=== PATIENT | female | born 1990 | race African-American/Black ===

== ENCOUNTER 2018-10-08 03:36 | Inpatient (IN) | payer SELFPAY ==
[2018-10-08] MEDS ORDERED: MEPERIDINE HCL 25 MG/0.5 ML IV PRN (04:10)
[2018-10-08] MEDS ORDERED: METHYLERGONOVINE 0.2MG/ML AMP IM PRN (04:10)
[2018-10-08] MEDS ORDERED: MIDAZOLAM HCL 2 MG/2 ML INJ IV PRN (04:10)
[2018-10-08] MEDS ORDERED: Ringers Lactate 1,000 ML IV PRN (04:10)
[2018-10-08] MEDS ORDERED: METHYLERGONOVINE 0.2MG/ML AMP IM ONE (04:36)
[2018-10-08] MEDS ORDERED: OXYTOCIN/LR 20 UNIT/1,000 ML BAG IV ONE (04:37)
[2018-10-08 04:38] LABS: RPR Titer ND
[2018-10-08 04:53] LABS: Barbiturates NEGATIVE (NEGATIVE); Benzodiazepines NEGATIVE (NEGATIVE); Cocaine NEGATIVE (NEGATIVE); METHAMPHETAM NEGATIVE (NEGATIVE); Methadone NEGATIVE (NEGATIVE); Opiates NEGATIVE (NEGATIVE); Phencyclidine NEGATIVE (NEGATIVE); THC Cannibis NEGATIVE (NEGATIVE)
[2018-10-08 04:56] LABS: Absolute Lymphocytes (CBC) 2.2 K/uL (0.7-4.9); Absolute Monocytes 0.8 K/uL (0.1-1.3); Absolute Neutrophil 6.4 K/uL (1.8-8.0); Basophils % 0.5 % (0-1.3); Hematocrit 38.5 % (36.0-45.0); Lymphocytes % 22.8 % (15.3-44.8); MPV 10.1 fL (7.6-11.3); Monocytes % 7.9 % (3.3-12.3); RBC Red Blood Cell Count 4.64 M/uL (3.86-4.86)
[2018-10-08] MEDS ORDERED: Ringers Lactate 1,000 ML IV SCH (05:00)
[2018-10-08 05:01] VITALS: BMI 32.1
[2018-10-08 05:05] LABS: Urine Appearance CLEAR; Urine Bilirubin NEGATIVE (NEG); Urine Blood NEGATIVE (NEG); Urine Color YELLOW; Urine Glucose NEGATIVE (NEG); Urine Protein NEGATIVE (NEG); Urine Urobilinogen 0.2 mg/dL (0.2-1.0)
[2018-10-08 05:07] LABS: Urine Microscopic Reflex ORDER UMIC
--- NOTE | 2018-10-08 05:33 | PN ---
Ultrasound confirmed demise and collapsing of the cranial bones. There is also disorganization of the internal structures indicating this has probably occurred days before she has come in. Even though she says she was feeling movements, that is unlikely. Drug screen is negative. The patient h as not been seen 1 time by anybody even in the emergency room. She has no significant disease histor y, so the exact cause of stillborn, of course, is uncertain. The patient and significant other couns dillan. ROXY/JAN Voice ID: [id number] Report ID: [id number]
[2018-10-08 05:35] LABS: Urine Bacteria 20-50 /HPF (<20); Urine Culture Reflex Order REFLEXED; Urine RBC <5 /HPF (NONE SEEN)
--- NOTE | 2018-10-08 05:38 | PREOPHP ---
Date of Admission: 10/08/2018 A 27-year-old, 6, para 5, 39 weeks and 4-5 days by best estimates. History of no ca re with at least 2 previous pregnancies and maybe all of them. No care with this either. Comes in, in advanced labor, 9 cm or more. 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 There i s a very thick meconium and it is hard to tell, but I think that there is a vertex presenting, but th e bones are not together. We have a collapsed vertex, it appears. Ultrasound is kira ordered at this point. Family History: Noncontributory. Past Medical History: Other than what is stated is not contributory. We will run a drug screen on the patient's. Physical Examination: Vital Signs: Normal vital signs. General: She is alert on her cell phone. Heart: Clear. Lungs: Clear. Breasts: Not examined. Abdomen: Term size. Extremities: Clear. Pelvic: Exam shows that she is 9-10 cm. Ultrasound demonstrates what we think radha se. We will start Pitocin and finish the delivery at this point. ROXY/JAN Voice ID: [id number]
[2018-10-08] MEDS ORDERED: Oxycodone HCl/Acetaminophen 1 TAB TAB PO PRN ×2 (07:20)
[2018-10-08] MEDS ORDERED: BISACODYL 10 MG RECTAL SUPP RECT PRN (07:20)
[2018-10-08] MEDS ORDERED: IBUPROFEN 200 MG TAB PO PRN (07:20)
[2018-10-08] MEDS ORDERED: DIPHENHYDRAMINE 25 MG TAB/CAP PO PRN (07:20)
[2018-10-08] MEDS ORDERED: ACETAMINOPHEN 500 MG TAB PO PRN (07:20)
[2018-10-08] MEDS ORDERED: DOCUSATE NA/SENNA CONC 1 TAB PO PRN (07:20)
[2018-10-08] MEDS ORDERED: OXYTOCIN/LR 20 UNIT/1,000 ML BAG IV SCH (08:00)
--- NOTE | 2018-10-08 09:01 | RAD REPORT ---
EXAM DESCRIPTION: US - OB Limited - 10/08/2018 7:12 am CLINICAL HISTORY: . heart tones not noted COMPARISON: None FINDINGS: There is distortion of the anatomy and overlapping of the skull . Cardiac activity i s not present. There is no amniotic fluid. Presentation appears cephalic. IMPRESSION: demise. Given the distortion of the anatomy the demise likely is not recent
[2018-10-08] MEDS ORDERED: Ringers Lactate 1,000 ML IV ONE (09:18)
--- NOTE | 2018-10-08 11:47 | OP ---
Surgeon: Ryan Cabrera MD A 27-year-old multiparous female, 6, para 5, no care. Thirty-nine weeks 4 days is b est estimate. Came in 9 cm, but noted to have a very unusual presentation of the head with suspicion of collapsed cranial bones. Also no heart tones noted and thick dark fluid. Ultrasound confirmed f etal demise. White count on admission normal. Afebrile. No signs of amnionitis. After discussion with the patient and family, Pitocin was started, and she went rapidly to complete and delivered spon taneously an estimated 7-pound male . Nuchal cord very tightly x2. No obvious defects. No episiotomy. No laceration. Schultze delivery of the placenta, which was inspected, and noted to be intact and normal. Less than 200 cc blood loss. Tolerated all procedures well. Diagnoses: Term intrauterine , 39 weeks 4 days. No care. Stillborn. Tight nucha l cord x2. Negative drug screen. ROXY/JAN Voice ID: [id number] Report ID: [id number]
[2018-10-08 13:16] VITALS: BP 123/65; TEMP 97.5
[2018-10-08 22:15] LABS: RPR (Rapid Plasma Reagin) NON-REACT (NON-REACT)
--- NOTE | 2018-10-09 04:24 | DS ---
Date of Discharge: 10/08/2018 Hospital Course: This is a 27-year-old, 6, para 5, at 39 weeks 4 days according to her last menstrual period. Absolutely no care. Came into our institution in an advanced labor, 9 cm , but noted to have demise. The skull was collapsing. Ultrasound demonstrated organs be ginning to become disorganized. No heart tones. Thick meconium. Patient was informed. IV was star tricia. Light Pitocin was begun and she delivered rapidly of a term male infant. Very tight nuchal cor d x1 or even twice. The second loop was around the neck and shoulder area. Placenta delivered Schul giselee, inspected, and noted to be intact and normal, sent to pathology. Estimated blood loss 200 cc or less. Rh positive blood type. Drug screen was negative on admission. Her white count was under 10 ,000. She was afebrile. It appears that the cord accident was the cause of demise. The patie nt states that she had felt the baby move recently, but I doubt that given the advanced deterioration of the baby. She requested to go home several hours later and as she was having no problems, was di smissed. Final Diagnoses: Intrauterine gestation, 39 weeks 4 days, stillborn, male . Nuchal cord tight ly x1-2. No care. ROXY/JAN Voice ID: [id number] Report ID: [id number]
[2018-10-10 22:56] LABS: HBsAG Nonreactive (Nonreactive)
== END 2018-10-08 13:20 | disposition home or self-care (01) | DRG 807 ==
LOC: L&D 03:36 → 2ND-WC 04:09
PROVIDERS: ADMIT Specialist; ATTEND Specialist
PROC: 10E0XZZ Delivery of Products of Conception, External Approach (ICD-10-PCS; principal; 2018-10-08)
DX: O36.4XX0 Maternal care for intrauterine death, not applicable or unspecified (principal); Z37.1 Single stillbirth; O69.1XX0 Labor and delivery complicated by cord around neck, with compression, not applicable or unspecified; Z3A.39 39 weeks gestation of pregnancy
CPT/HCPCS: 36415; 76815; 80307; 81003; 81015; 82947; 85025; 86592; 86762; 86850; 86900; 86901; 87086; 87088; 87340; 88307; G0433; J2175; J2210; J2590

== ENCOUNTER 2020-03-27 19:25 | Emergency (ER) | payer SELFPAY ==
--- NOTE | 2020-03-27 19:53 | EDPHYS ---
Physician Documentation [facility] Name: Nubia Cardenas Age: 29 yrs Sex: Female : 1990 Arrival Date: 03/27/2020 Time: 19:28 Bed 17 Private MD: ED Physician Abdoul Durham HPI: 03/27 19:48 This 29 yrs old Black Female presents to ER via Ambulatory with complaints of wants rn COVID testing. 19:48 The patient has shortness of breath at rest. Onset: The symptoms/episode began/occurred rn 2 day(s) ago. Duration: The symptoms are intermittent. The patient's shortness of breath is aggravated by exertion, is alleviated by rest. Severity of symptoms: At their worst the symptoms were mild in the emergency department the symptoms have improved. The patient has not experienced similar symptoms in the past. Reports subjective fever/headache/sore throat, began 2 days ago, no sick contacts, doesn't work, feels better, no cough or chest pain, no chronic medical problems, came for testing "to make sure". Otherwise feels ok. No loss of taste or smell.. Historical: - Allergies: 19:40 No Known Allergies; ss - Home Meds: 19:40 None [Active]; ss - PMHx: 19:40 None; ss - PSHx: 19:40 None; ss - Immunization history:: Adult Immunizations up to date. - Social history:: Smoking status: Patient denies any tobacco usage or history of. - Family history:: not pertinent. - Hospitalizations: : No recent hospitalization is reported. ROS: 19:48 Constitutional: Negative for chills, and weight loss, Eyes: Negative for injury, pain, rn redness, and discharge, Neck: Negative for injury, pain, and swelling, Cardiovascular: Negative for chest pain, palpitations, and edema, Respiratory: Negative for shortness of breath, cough, wheezing, and pleuritic chest pain, Abdomen/GI: Negative for abdominal pain, nausea, vomiting, diarrhea, and constipation, MS/Extremity: Negative for injury and deformity, Skin: Negative for injury, rash, and discoloration, Neuro: Negative for weakness, numbness, tingling, and seizure. Exam: 19:48 Constitutional: This is a well developed, well nourished patient who is awake, alert, rn and in no acute distress. Head/Face: Normocephalic, atraumatic. Neck: Trachea midline, no thyromegaly or masses palpated, and no cervical lymphadenopathy. Supple, full range of motion without nuchal rigidity, or vertebral point tenderness. No Meningismus. Respiratory: Speaking full sentences. No increased work of breathing, no retractions or nasal flaring. Skin: Warm, dry with normal turgor. Normal color with no rashes, no lesions, and no evidence of cellulitis. MS/ Extremity: Pulses equal, no cyanosis. Neurovascular intact. Full, normal range of motion. Equal circumference. Neuro: Awake and alert, GCS 15, oriented to person, place, time, and situation. Vital Signs: 19:37 BP 138 / 89; Pulse 96; Resp 14; Temp 98.6(TE); Pulse Ox 100% on R/A; Weight 77.11 kg; ss Height 5 ft. 3 in. (160.02 cm); Pain 0/10; 19:37 Body Mass Index 30.11 (77.11 kg, 160.02 cm) ss MDM: 19:28 Patient medically screened. rn 19:48 Differential diagnosis: viral syndrome, COVID-19. Data reviewed: vital signs, nurses rn notes, and as a result, I will discharge patient. Special discussion: I discussed with the patient/guardian in detail that at this point there is no indication for admission to the hospital. It is understood, however, that if the symptoms persist or worsen the patient needs to return immediately for re-evaluation. ED course: Offered COVID testing here, after discussion with patient, she states she was planning on going to testing center tomorrow morning, normal vitals, no oxygen requirement, and does not appear ill, patient medically screened and chooses to leave without testing, will get testing in AM at testing center. . Administered Medications: No medications were administered Disposition: 03/27/20 19:52 Discharged to Home as Medical Screen. Impression: Person with feared health complaint in whom no diagnosis is made. - Condition is Stable. - Medication Reconciliation Form, Thank You Letter, Antibiotic Education, Prescription Opioid Use form. - Follow up: Private Physician; When: Tomorrow; Reason: Recheck today's complaints, Re-evaluation by your physician. - Problem is new. - Symptoms have improved. Signatures: Abdoul Durham MD MD rn Smirch, Shelby, RN RN ss Corrections: (The following items were deleted from the chart) 19:53 19:52 03/27/2020 19:52 Discharged to Home as Medical Screen. Impression: Person with ss feared health complaint in whom no diagnosis is made. Condition is Stable. Forms are Medication Reconciliation Form, Thank You Letter, Antibiotic Education, Prescription Opioid Use. Follow up: Private Physician; When: Tomorrow; Reason: Recheck today's complaints, Re-evaluation by your physician. Problem is new. Symptoms have improved. rn
--- NOTE | 2020-03-27 19:53 | ER ---
Nurse's Notes [facility] Name: Nubia Cardenas Age: 29 yrs Sex: Female : 1990 Arrival Date: 03/27/2020 Time: 19:28 Bed 17 Private MD: Diagnosis: Person with feared health complaint in whom no diagnosis is made Presentation: 03/27 19:37 Chief complaint: Patient states: headache, fever and trouble breathing that began 2 ss days ago. Pt reports she is feeling better, but wants to make sure she doesn't have COVID-19. Coronavirus screen: Patient denies a cough. Patient denies shortness of breath or difficulty breathing. Patient denies measured and/or subjective temperature greater than 100.4F prior to today's visit. Patient denies travel on a cruise ship or to a country the [facility] currently lists as an affected area. Patient denies contact with known and/or suspected case of COVID-19. Ebola Screen: Patient denies exposure to infectious person. Patient denies travel to an Ebola-affected area in the 21 days before illness onset. Initial Sepsis Screen: Does the patient meet any 2 criteria? No. Patient's initial sepsis screen is negative. Does the patient have a suspected source of infection? No. Patient's initial sepsis screen is negative. Risk Assessment: Do you want to hurt yourself or someone else? Patient reports no desire to harm self or others. Onset of symptoms was March 25, 2020. 19:37 Method Of Arrival: Ambulatory ss 19:37 Acuity: CESAR 5 ss Triage Assessment: 19:45 General: Appears in no apparent distress. Behavior is cooperative, anxious. vc 19:45 Respiratory: Reports shortness of breath cough that is Onset: The symptoms/episode vc began/occurred gradually, the patient has mild shortness of breath. Historical: - Allergies: 19:40 No Known Allergies; ss - Home Meds: 19:40 None [Active]; ss - PMHx: 19:40 None; ss - PSHx: 19:40 None; ss - Immunization history:: Adult Immunizations up to date. - Social history:: Smoking status: Patient denies any tobacco usage or history of. - Family history:: not pertinent. - Hospitalizations: : No recent hospitalization is reported. Screenin:41 Abuse screen: Denies threats or abuse. Denies injuries from another. Nutritional ss screening: No deficits noted. Tuberculosis screening: Never had TB. Fall Risk None identified. Assessment: 19:45 Pain: Complains of pain in chest. Cardiovascular: Rhythm is regular. Respiratory: vc Airway is patent Respiratory effort is even, unlabored. Vital Signs: 19:37 BP 138 / 89; Pulse 96; Resp 14; Temp 98.6(TE); Pulse Ox 100% on R/A; Weight 77.11 kg; ss Height 5 ft. 3 in. (160.02 cm); Pain 0/10; 19:37 Body Mass Index 30.11 (77.11 kg, 160.02 cm) ss ED Course: 19:28 Patient arrived in ED. cf2 19:28 Abdoul Durham MD is Attending Physician. rn 19:40 Triage completed. ss 19:40 Marta Candelaria RN is Primary Nurse. vc 19:40 Arm band placed on right wrist. ss 19:41 Patient has correct armband on for positive identification. Bed in low position. Call ss light in reach. 19:41 No provider procedures requiring assistance completed. Patient did not have IV access ss during this emergency room visit. Administered Medications: No medications were administered Outcome: 19:46 Medical screen evaluation completed per provider. Patient declined treatment. vc 19:52 Discharge ordered by . rn 19:53 Instructed on follow up and referral plans. ss 19:53 Patient left the ED. ss Signatures: Abdoul Durham MD MD rn Smirch, Shelby, RN RN Rosa Kee cf2 Marta Candelaria RN RN vc
[2020-03-27 20:02] VITALS: BP 138/89; TEMP 98.6; O2SAT 100
== END 2020-03-27 19:53 | disposition home or self-care (01) ==
LOC: ER 19:25
DX: Z71.1 Person with feared health complaint in whom no diagnosis is made (principal)
CPT/HCPCS: 99281

== ENCOUNTER 2020-04-17 15:09 | Emergency (ER) | payer SELFPAY ==
[2020-04-17 16:13] LABS: Absolute Lymphocytes (CBC) 1.6 K/uL (0.7-4.9); Basophils % 0.7 % (0-1.3); Hematocrit 36.7 % (36.0-45.0); Lymphocytes % 21.8 % (15.3-44.8); MPV 9.9 fL (7.6-11.3); RBC Red Blood Cell Count 4.58 M/uL (3.86-4.86)
[2020-04-17 16:14] LABS: Protime INR 1.24
[2020-04-17 16:29] LABS: ALT/SGPT 20 U/L (12-78); AST/SGOT 16 U/L (15-37); Alkaline Phosphatase 92 U/L (45-117); BUN Blood Urea Nitrogen 7 mg/dL (7-18); Bicarbonate 27 mmol/L (21-32); Bilirubin Direct 0.1 mg/dL (0-0.2); Bilirubin Total 0.5 mg/dL (0.2-1.0); Glucose Level 109 mg/dL (74-106); Magnesium 1.9 mg/dL (1.8-2.4); NT PRO-BNP 42 pg/mL (<125); Potassium 3.1 mmol/L (3.5-5.1); Protein, Total 8.9 g/dL (6.4-8.2); Sodium Level 140 mmol/L (136-145); Troponin (Emerg Dept Use Only) < 0.02 ng/mL (0.0-0.045)
--- NOTE | 2020-04-17 17:31 | RAD REPORT ---
EXAM DESCRIPTION: Cecile Single View04/17/2020 4:41 pm CLINICAL HISTORY: Chest pain COMPARISON: none FINDINGS: The lungs appear clear of acute infiltrate. The heart is normal size. Mild prominence of right paratracheal region could be vascular or lymphadenopathy
--- NOTE | 2020-04-17 17:47 | EDPHYS ---
Physician Documentation [facility] Name: Nubia Cardenas Age: 29 yrs Sex: Female : 1990 Arrival Date: 04/17/2020 Time: 15:11 Bed 16 Private MD: ED Physician Shorty Camara HPI: 04/17 16:29 This 29 yrs old Black Female presents to ER via Ambulatory with complaints of Head jmm Pressure, Chest Tightness. 16:29 The patient or guardian reports chest pain that is located primarily in the substernal jmm area. The pain does not radiate. Associated signs and symptoms: Pertinent positives: shortness of breath. The chest pain is described as aching. Duration: The patient or guardian reports a single episode. Modifying factors: The symptoms are alleviated by nothing. the symptoms are aggravated by nothing. This is a 29 year old female with no chronic medical conditions that presents to the ED with complaints of anterior chest pain for the past 2 days. Pain is intermittent. Denies cough. Patient also complains of a mild headache described as pressure to her temples. Denies fever. . POST GRADUATE INTERN: 15:20 LMP 04/16/2020 hb Historical: - Allergies: 15:20 No Known Allergies; hb - Home Meds: 15:20 None [Active]; hb - PMHx: 15:20 None; hb - PSHx: 15:20 None; hb - Immunization history:: Adult Immunizations up to date. - Social history:: Smoking status: Patient denies any tobacco usage or history of. ROS: 16:29 Constitutional: Negative for fever, chills, and weight loss. jmm 16:29 Cardiovascular: Positive for chest pain. 16:29 Respiratory: Positive for shortness of breath. 16:29 All other systems are negative. Exam: 16:29 Constitutional: This is a well developed, well nourished patient who is awake, alert, jmm and in no acute distress. Head/Face: atraumatic. Eyes: EOMI, no conjunctival erythema appreciated ENT: Moist Mucus Membranes Neck: Trachea midline, Supple Chest/axilla: Normal chest wall appearance and motion. Cardiovascular: Regular rate and rhythm. No edema appreciated Respiratory: Normal respirations, no respiratory distress appreciated Abdomen/GI: Non distended, soft Back: Normal ROM Skin: General appearance color normal MS/ Extremity: Moves all extremities, no obvious deformities appreciated, no edema noted to the lower extremities Neuro: Awake and alert, normal gait Psych: Behavior is normal, Mood is normal, Patient is cooperative and pleasant 16:35 ECG was reviewed by the Attending Physician. [facility] Vital Signs: 15:18 BP 138 / 83; Pulse 89; Resp 16; Temp 98.2; Pulse Ox 100% on R/A; Weight 79.38 kg; hb Height 5 ft. 3 in. (160.02 cm); Pain 0/10; 16:18 BP 131 / 95; Pulse 98; Resp 18 S; Pulse Ox 98% on R/A; ca1 17:22 BP 129 / 74; Pulse 89; Resp 17 S; Pulse Ox 99% on R/A; ca1 15:18 Body Mass Index 31.00 (79.38 kg, 160.02 cm) hb MDM: 15:27 Patient medically screened. ariana 17:45 Data reviewed: vital signs, nurses notes. Counseling: I had a detailed discussion with mat the patient and/or guardian regarding: the historical points, exam findings, and any diagnostic results supporting the discharge/admit diagnosis, lab results, radiology results, the need for outpatient follow up, to return to the emergency department if symptoms worsen or persist or if there are any questions or concerns that arise at home. ED course: HEART SCORE = 0, PERC NEGATIVE. . 04/17 15:52 Order name: Basic Metabolic Panel [facility] 04/17 15:52 Order name: CBC with Diff [facility] 04/17 15:52 Order name: LFT's [facility] 04/17 15:52 Order name: Magnesium; Complete Time: 16:36 [facility] 04/17 15:52 Order name: NT PRO-BNP; Complete Time: 16:36 [facility] 04/17 15:52 Order name: PT-INR; Complete Time: 16:36 [facility] 04/17 15:52 Order name: Troponin (emerg Dept Use Only); Complete Time: 16:36 [facility] 04/17 15:52 Order name: XRAY Chest (1 view); Complete Time: 17:44 [facility] 04/17 15:52 Order name: EKG; Complete Time: 15:54 [facility] 04/17 15:52 Order name: Cardiac monitoring; Complete Time: 16:06 [facility] 04/17 15:53 Order name: EKG - Nurse/Tech; Complete Time: 16:07 [facility] 04/17 15:53 Order name: Basic Metabolic Panel; Complete Time: 16:36 [facility] 04/17 15:53 Order name: CBC with Automated Diff; Complete Time: 16:36 [facility] 04/17 15:53 Order name: Liver (Hepatic) Function; Complete Time: 16:36 [facility] 04/17 15:53 Order name: IV Saline Lock; Complete Time: 16:06 [facility] 04/17 15:53 Order name: Labs collected and sent; Complete Time: 16:06 [facility] 04/17 15:53 Order name: O2 Per Protocol; Complete Time: 16:06 [facility] 04/17 15:53 Order name: O2 Sat Monitoring; Complete Time: 16: [facility] EC:35 Rate is 92 beats/min. Rhythm is regular. QRS [place] is Normal. [place] interval is normal. QRS jmm interval is normal. QT interval is normal. No Q waves. T waves are Normal. No ST changes noted. Reviewed by me. Administered Medications: No medications were administered Disposition: 04/18 05:34 Co-signature as Attending Physician, Shorty Camara MD I agree with the assessment and [facility] plan of care. Disposition: 04/17/20 17:46 Discharged to Home. Impression: Chest pain, unspecified. - Condition is Stable. - Discharge Instructions: Nonspecific Chest Pain, Lymphadenopathy. - Prescriptions for Medrol (Cody) 4 mg Oral Tablets, Dose Pack - take 1 tablet by ORAL route as directed - follow package instructions; 1 packet. - Medication Reconciliation Form, Thank You Letter, Antibiotic Education, Prescription Opioid Use form. - Follow up: Private Physician; When: 2 - 3 days; Reason: Recheck today's complaints, Continuance of care, Re-evaluation by your physician. - Notes: Your chest xray reveals a possible lymph node in your chest. Please follow up with your primary care provider for further evaluation. If pain increases, please return to the ED for further evaluation. Signatures: Dispatcher [employer] Shorty Haq MD MD cha Mickail, Joel, PA PA jmm Baxter, Heather, RN RN hb Acob, Cheryl, RN RN ca1 Corrections: (The following items were deleted from the chart) 04/17 18:02 17:46 04/17/2020 17:46 Discharged to Home. Impression: Chest pain, unspecified. ca1 Condition is Stable. Forms are Medication Reconciliation Form, Thank You Letter, Antibiotic Education, Prescription Opioid Use. Follow up: Private Physician; When: 2 - 3 days; Reason: Recheck today's complaints, Continuance of care, Re-evaluation by your physician. mat
--- NOTE | 2020-04-17 17:47 | ER ---
Nurse's Notes [facility] Name: Nubia Cardenas Age: 29 yrs Sex: Female : 1990 Arrival Date: 04/17/2020 Time: 15:11 Bed 16 Private MD: Diagnosis: Chest pain, unspecified Presentation: 04/17 15:18 Chief complaint: Chest tightness, mild SOB, and headache x 2-3 days. Coronavirus hb screen: Patient denies a cough. Patient reports shortness of breath or difficulty breathing. Patient denies measured and/or subjective temperature greater than 100.4F prior to today's visit. Patient denies travel on a cruise ship or to a country the [facility] currently lists as an affected area. Patient denies contact with known and/or suspected case of COVID-19. Proceed with normal triage. Ebola Screen: No symptoms or risks identified at this time. Initial Sepsis Screen: Does the patient meet any 2 criteria? No. Patient's initial sepsis screen is negative. Does the patient have a suspected source of infection? No. Patient's initial sepsis screen is negative. Risk Assessment: Do you want to hurt yourself or someone else? Patient reports no desire to harm self or others. Onset of symptoms was April 15, 2020. 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 - Social history:: Smoking status: Patient denies any tobacco usage or history of. Screenin:40 Abuse screen: Denies threats or abuse. Denies injuries from another. Nutritional ca1 screening: No deficits noted. Tuberculosis screening: No symptoms or risk factors identified. Fall Risk IV access (20 points). Assessment: 15:40 General: Appears in no apparent distress. comfortable, Behavior is calm, cooperative, ca1 appropriate for age. Pain: Complains of pain in anterior aspect of right upper chest, anterior aspect of left upper chest and mid-sternal area Pain does not radiate. Pain currently is 6 out of 10 on a pain scale. Pain began 2-3 days ago. Is intermittent. Neuro: Level of Consciousness is awake, alert, obeys commands, Oriented to person, place, time, situation. Cardiovascular: Heart tones S1 S2 present Capillary refill < 3 seconds Patient's skin is warm and dry. Rhythm is sinus rhythm. Respiratory: Airway is patent Respiratory effort is even, unlabored, Respiratory pattern is regular, symmetrical, Breath sounds are clear bilaterally. GI: Abdomen is round non-distended, Bowel sounds present X 4 quads. Abd is soft and non tender X 4 quads. : No signs and/or symptoms were reported regarding the genitourinary system. EENT: No signs and/or symptoms were reported regarding the EENT system. Derm: Skin is intact, is healthy with good turgor, Skin is pink, warm \T\ dry. Musculoskeletal: Circulation, motion, and sensation intact. Capillary refill < 3 seconds. 17:22 Reassessment: Patient appears in no apparent distress at this time. Patient and/or ca1 family updated on plan of care and expected duration. Pain level reassessed. Patient is alert, oriented x 3, equal unlabored respirations, skin warm/dry/pink. Vital Signs: 15:18 BP 138 / 83; Pulse 89; Resp 16; Temp 98.2; Pulse Ox 100% on R/A; Weight 79.38 kg; hb Height 5 ft. 3 in. (160.02 cm); Pain 0/10; 16:18 BP 131 / 95; Pulse 98; Resp 18 S; Pulse Ox 98% on R/A; ca1 17:22 BP 129 / 74; Pulse 89; Resp 17 S; Pulse Ox 99% on R/A; ca1 15:18 Body Mass Index 31.00 (79.38 kg, 160.02 cm) hb ED Course: 15:11 Patient arrived in ED. ag5 15:19 Triage completed. hb 15:20 Arm band placed on. hb 15:23 Sterling Garcia PA is PHCP. [facility] 15:23 Shorty Camara MD is Attending Physician. [facility] 15:25 Lauren Bardales RN is Primary Nurse. ca1 15:40 Patient has correct armband on for positive identification. Placed in gown. Bed in low ca1 position. Call light in reach. Side rails up X2. quality assurance monitor chassis on. Pulse ox on. NIBP on. Warm blanket given. 16:07 No provider procedures requiring assistance completed. Initial lab(s) drawn, by me, ca1 sent to lab. Inserted saline lock: 20 gauge in left upper arm, using aseptic technique. Blood collected. Patient maintains SpO2 saturation greater than 95% on room air. 16:41 XRAY Chest (1 view) In Process Unspecified. EDMS 18:01 IV discontinued, intact, bleeding controlled, No redness/swelling at site. Pressure ca1 dressing applied. Administered Medications: No medications were administered Outcome: 17:46 Discharge ordered by . mat 18:01 Discharged to home ambulatory. ca1 18:01 Condition: stable 18:01 Discharge instructions given to patient, Instructed on discharge instructions, follow up and referral plans. medication usage, Demonstrated understanding of instructions, follow-up care, medications, Prescriptions given X 1. 18:02 Patient left the ED. ca1 Signatures: Dispatcher [employer] EDMS Sterling Garcia PA PA jmm Baxter, Heather, RN RN Lauren Bardales RN RN Jean Carlos Higgins ag5
[2020-04-17 18:29] VITALS: TEMP 98.2
[2020-04-17 18:32] VITALS: BP 129/74; O2SAT 99
--- NOTE | 2020-04-18 05:57 | EKG ---
Test Date: 2020-04-17 Test Time: 16:13:33 Store Administrator: KARLA MEASUREMENT RESULTS: Intervals: Rate: 92 FL: 144 QRSD: 90 QT: 326 QTc: 403 [place]: P: 59 FL: 144 QRS: 70 T: 75 INTERPRETIVE STATEMENTS: Sinus rhythm with marked sinus arrhythmia Otherwise normal ECG No previous ECG available for comparison Electronically Signed On 04-18-20 05:56:33 CDT by Krzysztof Montes De Oca
== END 2020-04-17 18:02 | disposition home or self-care (01) ==
LOC: ER 15:09
DX: R07.9 Chest pain, unspecified (principal)
CPT/HCPCS: 36415; 71045; 80048; 80076; 83735; 83880; 84484; 85025; 85610; 93005; 99285

== ENCOUNTER 2020-05-02 00:18 | Emergency (ER) | payer SELFPAY ==
--- NOTE | 2020-05-02 00:59 | EDPHYS ---
Physician Documentation [facility] Name: Nubia Cardenas Age: 29 yrs Sex: Female : 1990 Arrival Date: 05/02/2020 Time: 00:25 Bed 20 Private MD: ED Physician Shorty Camara HPI: 05/02 00:45 This 29 yrs old Black Female presents to ER via Ambulatory with complaints of Sore jmm Throat. 00:45 The patient presents with swelling. The patient describes throat pain as swelling. jmm Onset: The symptoms/episode began/occurred today. This is a 29 year old female with no chronic medical conditions that presents to the ED with complaints of swelling to her neck which she noticed today. Denies fever, denies cough, denies sore throat. Patient localizes the swelling to the region of the thyroid. . 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 - Social history:: Smoking status: Patient denies any tobacco usage or history of. ROS: 00:45 Constitutional: Negative for fever, chills, and weight loss, Cardiovascular: Negative jmm for chest pain, palpitations, and edema, Respiratory: Negative for shortness of breath, cough, wheezing, and pleuritic chest pain, Abdomen/GI: Negative for abdominal pain, nausea, vomiting, diarrhea, and constipation. 00:45 All other systems are negative. Exam: 00:45 Constitutional: This is a well developed, well nourished patient who is awake, alert, jmm and in no acute distress. Head/Face: atraumatic. Eyes: EOMI, no conjunctival erythema appreciated ENT: Moist Mucus Membranes 00:45 Chest/axilla: Normal chest wall appearance and motion. Cardiovascular: Regular rate and rhythm. No edema appreciated Respiratory: Normal respirations, no respiratory distress appreciated Abdomen/GI: Non distended, soft Back: Normal ROM Skin: General appearance color normal MS/ Extremity: Moves all extremities, no obvious deformities appreciated, no edema noted to the lower extremities Neuro: Awake and alert, normal gait Psych: Behavior is normal, Mood is normal, Patient is cooperative and pleasant 00:45 ENT: Posterior pharynx: is normal, Airway: normal, Uvula: normal, swelling, is not appreciated, erythema, is not appreciated. 00:45 Neck: Thyroid: enlargement, that is mild, tenderness, absent. Vital Signs: 00:38 BP 141 / 87; Pulse 90; Resp 16; Temp 98.7(O); Pulse Ox 99% on R/A; Weight 77.11 kg (R); lp1 Height 5 ft. 3 in. (160.02 cm); 00:38 Body Mass Index 30.11 (77.11 kg, 160.02 cm) lp1 MDM: 00:35 Patient medically screened. [facility] 00:50 Data reviewed: vital signs, nurses notes. Counseling: I had a detailed discussion with mat the patient and/or guardian regarding: the historical points, exam findings, and any diagnostic results supporting the discharge/admit diagnosis, the need for outpatient follow up, to return to the emergency department if symptoms worsen or persist or if there are any questions or concerns that arise at home. ED course: Patient is alert and non toxic in appearance in the ED. No airway involvement appreciated. Patient is advised of the need for thyroid US for further evaluation. Patient is otherwise given strict return precautions. Patient understood and agrees with the plan of care. . Administered Medications: No medications were administered Disposition: 11:01 Co-signature as Attending Physician, Shorty Camara MD I agree with the assessment and ariana plan of care. Disposition: 05/02/20 00:58 Discharged to Home. Impression: Sore Throat. - Condition is Stable. - Discharge Instructions: Sore Throat. - Medication Reconciliation Form, Thank You Letter, Antibiotic Education, Prescription Opioid Use form. - Follow up: Private Physician; When: 2 - 3 days; Reason: Recheck today's complaints, Continuance of care, Re-evaluation by your physician. - Notes: Please follow up with your PCP for US evaluation of your thyroid. Please return to the ED if you develop increased swelling, pain, fever. Signatures: Shorty Camara MD MD cha Mickail, Joel, PA PA jmm Pena, Laura, RN RN lp1 Corrections: (The following items were deleted from the chart) 01:21 00:58 05/02/2020 00:58 Discharged to Home. Impression: Sore Throat. Condition is lp1 Stable. Forms are Medication Reconciliation Form, Thank You Letter, Antibiotic Education, Prescription Opioid Use. Follow up: Private Physician; When: 2 - 3 days; Reason: Recheck today's complaints, Continuance of care, Re-evaluation by your physician. mat
--- NOTE | 2020-05-02 00:59 | ER ---
Nurse's Notes [facility] Name: Nubia Cardenas Age: 29 yrs Sex: Female : 1990 Arrival Date: 05/02/2020 Time: 00:25 Bed 20 Private MD: Diagnosis: Sore Throat Presentation: 05/02 00:38 Chief complaint: Patient states: Sore throat x 2 days; denies cough, congestion, fever. lp1 Coronavirus screen: Client denies travel out of the [place] in the last 14 days. At this time, the client does not indicate any symptoms associated with coronavirus-19. Ebola Screen: No symptoms or risks identified at this time. Initial Sepsis Screen: Does the patient meet any 2 criteria? No. Patient's initial sepsis screen is negative. Does the patient have a suspected source of infection? No. Patient's initial sepsis screen is negative. Risk Assessment: Do you want to hurt yourself or someone else? Patient reports no desire to harm self or others. Onset of symptoms was May 02, 2020. 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 - Social history:: Smoking status: Patient denies any tobacco usage or history of. Screenin:39 Abuse screen: Denies threats or abuse. Denies injuries from another. Nutritional lp1 screening: No deficits noted. Tuberculosis screening: No symptoms or risk factors identified. Fall Risk None identified. Assessment: 00:43 General: Appears in no apparent distress. Behavior is calm, cooperative, appropriate fu for age, Denies fever, feeling ill, fatigue, chills. Pain: Complains of pain in throat Pain does not radiate. Pain currently is 5 out of 10 on a pain scale. Pain began 2 hours ago. Is intermittent, Alleviated by. Neuro: Level of Consciousness is awake, alert, obeys commands, Oriented to person, place, time, situation, Chief Ii Dispatcher are equal bilaterally Moves all extremities. Gait is steady, Speech is normal, Facial symmetry appears normal, Intact. Cardiovascular: Denies chest pain, nausea, vomiting. Respiratory: Airway is patent Respiratory effort is even, unlabored, Breath sounds are clear bilaterally. GI: No signs and/or symptoms were reported involving the gastrointestinal system. : No signs and/or symptoms were reported regarding the genitourinary system. EENT: Throat Reports pain. Vital Signs: 00:38 BP 141 / 87; Pulse 90; Resp 16; Temp 98.7(O); Pulse Ox 99% on R/A; Weight 77.11 kg (R); lp1 Height 5 ft. 3 in. (160.02 cm); 00:38 Body Mass Index 30.11 (77.11 kg, 160.02 cm) lp1 ED Course: 00:25 Patient arrived in ED. [facility] 00:34 Sterling Garcia PA is PHCP. [facility] 00:34 Shorty Camara MD is Attending Physician. [facility] 00:37 Joel Taylor, RN is Primary Nurse. 00:39 Triage completed. lp1 00:39 Arm band placed on. lp1 00:40 Patient has correct armband on for positive identification. lp1 01:21 No provider procedures requiring assistance completed. Patient did not have IV access lp1 during this emergency room visit. Administered Medications: No medications were administered Outcome: 00:58 Discharge ordered by . [facility] 01:21 Discharged to home ambulatory. lp1 01:21 Condition: good 01:21 Discharge instructions given to patient, Instructed on discharge instructions, follow up and referral plans. Demonstrated understanding of instructions, follow-up care. 01:21 Patient left the ED. lp1 Signatures: Sterling Garcia PA PA Dionna Choudhury, RN RN [facility] Joel Taylor, John Zavala RN [facility]
[2020-05-02 01:28] VITALS: BP 141/87; TEMP 98.7; O2SAT 99
== END 2020-05-02 01:21 | disposition home or self-care (01) ==
LOC: ER 00:18
DX: J02.9 Acute pharyngitis, unspecified (principal)
CPT/HCPCS: 99281

== ENCOUNTER 2020-06-19 17:40 | Inpatient (IN) | payer SELFPAY ==
[2020-06-19] MEDS ORDERED: NA CHLORIDE 0.9% 0 ML ONE (18:34)
--- NOTE | 2020-06-19 18:55 | RAD REPORT ---
EXAM DESCRIPTION: RAD - Chest Single View - 06/19/2020 6:41 pm CLINICAL HISTORY: FEVER COMPARISON: April 17 TECHNIQUE: AP portable chest image was obtained 06/19/2020 6:41 pm . FINDINGS: Lungs are clear. Lung markings are similar to comparison when adjusting for the shallow in spiration. Heart and vasculature are normal. No measurable pleural effusion and no pneumothorax. No a cute bony abnormality seen. No acute aortic findings suspected. IMPRESSION: No acute cardiopulmonary process. No significant change from comparison.
[2020-06-19 19:01] LABS: Absolute Lymphocytes (CBC) 1.9 K/uL (0.7-4.9); Basophils % 0.3 % (0-1.3); Hematocrit 38.5 % (36.0-45.0); Lymphocytes % 12.5 % (15.3-44.8); MPV 10.6 fL (7.6-11.3); Protime INR 1.5; RBC Red Blood Cell Count 4.83 M/uL (3.86-4.86)
[2020-06-19 19:08] LABS: Urine Blood 3+ (NEG); Urine Glucose NEGATIVE (NEG); Urine Protein 2+ (NEG)
[2020-06-19 19:09] LABS: Urine Bacteria >50 /HPF (<20); Urine RBC <5 /HPF (NONE SEEN)
[2020-06-19 19:10] LABS: Urine Culture Reflex Order REFLEXED
[2020-06-19 19:27] LABS: ALT/SGPT 22 U/L (12-78); AST/SGOT 17 U/L (15-37); Albumin 3.4 g/dL (3.4-5.0); Alkaline Phosphatase 93 U/L (45-117); BUN Blood Urea Nitrogen 6 mg/dL (7-18); Bicarbonate 26 mmol/L (21-32); Bilirubin Direct 0.2 mg/dL (0-0.2); Bilirubin Total 0.7 mg/dL (0.2-1.0); Ferritin 59.4 ng/mL (8-388); Glucose Level 112 mg/dL (74-106); Lipase 62 U/L (73-393); Protein, Total 8.9 g/dL (6.4-8.2); Sodium Level 137 mmol/L (136-145); Troponin (Emerg Dept Use Only) < 0.02 ng/mL (0.0-0.045)
[2020-06-19 19:31] LABS: Potassium 2.8 mmol/L (3.5-5.1)
[2020-06-19 19:36] LABS: Blood Morphology Comment NOT SEEN (NOT SEEN); Platelet Estimate ADEQ; Platelets, Giant NOTED; Polychromasia SLIGHT
[2020-06-19] MEDS ORDERED: dexAMETHasone 4 MG/ML VIAL ONE (19:42)
[2020-06-19] MEDS ORDERED: HYDROCODONE/APAP 5/325 MG TAB ONE (19:42)
[2020-06-19] MEDS ORDERED: ENOXAPARIN 80 MG/0.8 ML SQ ONE (19:42)
[2020-06-19] MEDS ORDERED: CEFTRIAXONE/SWI 1gm 1 GM/10 ML SYR ONE (19:42)
[2020-06-19] MEDS ORDERED: NA CHLORIDE 0.9% 1,000 ML ONE (19:43)
[2020-06-19] MEDS ORDERED: NS KCL 20MEQ 1,000 ML IV ONE (20:33)
[2020-06-19] MEDS ORDERED: KCL 20 MEQ/100 mL IVPB 20 MEQ/100 ML BAG IV ONE (20:33)
[2020-06-19] MEDS ORDERED: IBUPROFEN 200 MG TAB PO ONE (21:46)
--- NOTE | 2020-06-19 21:55 | EDPHYS ---
Physician Documentation [facility] Name: Nubia Cardenas Age: 29 yrs Sex: Female : 1990 Arrival Date: 06/19/2020 Time: 17:43 Bed 19 Private MD: ED Physician HPI: 06/19 18:57 This 29 yrs old Black Female presents to ER via Ambulatory with complaints of Fever, snw Headache. 18:57 The patient reports fever, that was measured at 100 degrees Fahrenheit. Onset: The snw symptoms/episode began/occurred suddenly, last night. Associated signs and symptoms: Pertinent positives: decreased appetite, headache, sore throat. Severity of symptoms: At their worst the symptoms were moderate. The patient has not experienced similar symptoms in the past. It is unknown whether or not the patient has recently seen a physician. Historical: - Allergies: 18:10 No Known Allergies; bp - Home Meds: 18:10 None [Active]; bp - PMHx: 18:10 None; bp - Immunization history:: Adult Immunizations up to date. - Social history:: Smoking status: Patient denies any tobacco usage or history of. ROS: 18:57 Eyes: Negative for injury, pain, redness, and discharge, ENT: Negative for injury, snw pain, and discharge, Neck: Negative for injury, pain, and swelling, Cardiovascular: Negative for chest pain, palpitations, and edema, Respiratory: Negative for shortness of breath, cough, wheezing, and pleuritic chest pain, Abdomen/GI: Negative for abdominal pain, nausea, vomiting, diarrhea, and constipation, Back: Negative for injury and pain, : Negative for injury, bleeding, discharge, and swelling, MS/Extremity: Negative for injury and deformity, Skin: Negative for injury, rash, and discoloration. 18:57 Constitutional: Positive for body aches, fever, malaise, poor PO intake. 18:57 Neuro: Positive for headache. Exam: 18:55 Head/Face: Normocephalic, atraumatic. Eyes: Pupils equal round and reactive to light, snw extra-ocular motions intact. Lids and lashes normal. Conjunctiva and sclera are non-icteric and not injected. Cornea within normal limits. Periorbital areas with no swelling, redness, or edema. ENT: Nares patent. No nasal discharge, no septal abnormalities noted. Tympanic membranes are normal and external auditory canals are clear. Oropharynx with no redness, swelling, or masses, exudates, or evidence of obstruction, uvula midline. Mucous membranes moist. Neck: Trachea midline, no thyromegaly or masses palpated, and no cervical lymphadenopathy. Supple, full range of motion without nuchal rigidity, or vertebral point tenderness. No Meningismus. Chest/axilla: Normal chest wall appearance and motion. Nontender with no deformity. No lesions are appreciated. 18:55 Head/Face: Normocephalic, atraumatic. ENT: Nares patent. No nasal discharge, no septal abnormalities noted. Tympanic membranes are normal and external auditory canals are clear. Oropharynx with redness, no swelling, or masses, exudates, or evidence of obstruction, uvula midline. Mucous membranes moist. Respiratory: Lungs have equal breath sounds bilaterally, clear to auscultation and percussion. No rales, rhonchi or wheezes noted. No increased work of breathing, no retractions or nasal flaring. Abdomen/GI: Soft, non-tender, with normal bowel sounds. No distension or tympany. No guarding or rebound. No evidence of tenderness throughout. Back: No spinal tenderness. No costovertebral tenderness. Full range of motion. Skin: Warm, dry with normal turgor. Normal color with no rashes, no lesions, and no evidence of cellulitis. MS/ Extremity: Pulses equal, no cyanosis. Neurovascular intact. Full, normal range of motion. Neuro: Awake and alert, GCS 15, oriented to person, place, time, and situation. Cranial nerves II-XII grossly intact. Motor strength 5/5 in all extremities. Sensory grossly intact. Cerebellar exam normal. Normal gait. Psych: Awake, alert, with orientation to person, place and time. Behavior, mood, and affect are within normal limits. 18:55 Constitutional: The patient appears alert, awake, febrile. 18:55 Cardiovascular: Rate: tachycardic, Rhythm: regular, Pulses: no pulse deficits are appreciated, Heart sounds: gallop. Vital Signs: 18:08 BP 126 / 66; Pulse 148; Resp 20; Temp 99.3; Pulse Ox 99% ; Weight 77.11 kg; Height 5 bp ft. 3 in. (160.02 cm); 20:36 BP 119 / 75; Pulse 125; Resp 16; Pulse Ox 99% on R/A; jb4 21:30 BP 114 / 70; Pulse 115; Resp 16; Temp 100.2(O); Pulse Ox 99% on R/A; jb4 22:30 BP 113 / 72; Pulse 105; Resp 18; Temp 98.6(O); Pulse Ox 100% on R/A; jb4 23:15 BP 93 / 64; Pulse 89; Resp 16; Pulse Ox 100% on R/A; jb4 18:08 Body Mass Index 30.11 (77.11 kg, 160.02 cm) bp MDM: 18:46 Patient medically screened. snw 21:54 Data reviewed: vital signs, nurses notes. Data interpreted: Pulse oximetry: on room air snw is 99 %. Interpretation: normal. Physician consultation: Jorge A MODI was called at 21:55, was contacted at 21:55, regarding admission, to the telemetry unit. 06/19 18:14 Order name: Blood Culture Adult (2) bp 06/19 18:14 Order name: BMP bp 06/19 18:14 Order name: C-Reactive Protein bp 06/19 18:14 Order name: CBC with Diff bp 06/19 18:14 Order name: COVID-19 bp 06/19 18:14 Order name: D-Dimer bp 06/19 18:14 Order name: Ferritin bp 06/19 18:14 Order name: Flu bp 06/19 18:14 Order name: Lactate bp 06/19 18:14 Order name: LFT's bp 06/19 18:14 Order name: Lipase bp 06/19 18:14 Order name: Procalcitonin bp 06/19 18:14 Order name: PT-INR bp 06/19 18:14 Order name: Ptt, Activated bp 06/19 18:14 Order name: Strep bp 06/19 18:14 Order name: Troponin (emerg Dept Use Only) bp 06/19 18:14 Order name: Urine Microscopic Only bp 06/19 18:58 Order name: Urine Dipstick--Ancillary (enter results) eb 06/19 18:58 Order name: Urine --Ancillary (enter results) eb 06/19 19:02 Order name: CBC with Automated Diff; Complete Time: 19:37 EDMS 06/19 19:04 Order name: Protime (+INR); Complete Time: 19:04 [facility] 06/19 19:04 Order name: PTT, Activated Partial Thromb; Complete Time: 19:04 [facility] 06/19 19:04 Order name: D-Dimer; Complete Time: 19:04 [facility] 06/19 19:08 Order name: Urine --Ancillary; Complete Time: 19:11 [facility] 06/19 19:08 Order name: Urine Dipstick-Ancillary; Complete Time: 19:11 [facility] 06/19 19:10 Order name: Urine Microscopic Only; Complete Time: 19:11 [facility] 06/19 19:17 Order name: Lactate; Complete Time: 19:19 [facility] 06/19 19:31 Order name: Basic Metabolic Panel; Complete Time: 19:37 [facility] 06/19 19:31 Order name: Liver (Hepatic) Function; Complete Time: 19:37 [facility] 06/19 19:31 Order name: Troponin (Emerg Dept Use Only); Complete Time: 19:37 [facility] 06/19 18:14 Order name: Urine Test (obtain specimen); Complete Time: 19:00 06/19 18:14 Order name: CXR XRAY bp 06/19 18:14 Order name: EKG; Complete Time: 18:15 06/19 18:14 Order name: Cardiac monitoring; Complete Time: 19:00 06/19 18:14 Order name: Document PUI#; Complete Time: 19:00 06/19 18:14 Order name: Droplet/Contact Precautions; Complete Time: 19:00 06/19 18:14 Order name: EKG - Nurse/Tech; Complete Time: 19:23 06/19 18:14 Order name: IV Start; Complete Time: 19:00 bp 06/19 18:14 Order name: Labs collected and sent; Complete Time: 19:00 06/19 18:14 Order name: Notify Health Dept [phone]/ ; Complete Time: 19:00 06/19 18:56 Order name: RAD; Complete Time: 18:58 [facility] 06/19 19:31 Order name: C-Reactive Protein; Complete Time: 19:37 [facility] 06/19 19:31 Order name: Lipase; Complete Time: 19:37 EDMS 06/19 19:32 Order name: Ferritin; Complete Time: 19:37 EDMS 06/19 19:36 Order name: Manual Differential; Complete Time: 19:37 EDMS 06/19 20:04 Order name: Procalcitonin; Complete Time: 20:09 EDMS 06/19 20:57 Order name: Influenza Screen (A ; Complete Time: 21:02 EDMS 06/19 20:57 Order name: Group A Streptococcus Rapid Sc; Complete Time: 21:02 EDMS 06/19 21:52 Order name: CT Chest For PE Angio snw 06/19 21:59 Order name: CORONAVIRUS EDMS 06/19 22:56 Order name: SARS-COV-2 RT PCR; Complete Time: 22:56 EDMS 06/19 18:14 Order name: O2 Per Protocol; Complete Time: 19:01 bp 06/19 18:14 Order name: O2 Sat Monitoring; Complete Time: 19:01 bp 06/19 18:14 Order name: Urine Dipstick-Ancillary (obtain specimen); Complete Time: 19:00 bp Administered Medications: 18:30 Drug: NS 0.9% 1000 ml Route: IV; Rate: 1 bolus; Site: right antecubital; bp 19:30 Follow up: Response: No adverse reaction; IV Status: Completed infusion; IV Intake: jb4 1000ml 19:33 Drug: [place] 5 mg-325 mg 2 tabs Route: PO; iw 20:00 Follow up: Response: No adverse reaction; Pain is decreased; RASS: Alert and Calm (0) jb4 19:35 Drug: Rocephin 1 grams Route: IV; Rate: calculated rate; Site: right antecubital; iw 19:37 Follow up: Response: No adverse reaction; IV Status: Completed infusion jb4 19:40 Drug: Decadron - Dexamethasone 10 mg Route: IVP; Site: right antecubital; iw 20:10 Follow up: Response: No adverse reaction jb4 19:43 Drug: Lovenox 1 mg/kg Route: Sub-Q; Site: abdomen; iw 22:20 Follow up: Response: No adverse reaction jb4 20:39 Not Given (Other Intervention Used): NS 0.9% with KCl 40 mEq/L 1000 ml IV at 200 ml/hr jb4 continuous 20:40 Drug: NS 0.9% with KCl 20 mEq/L 1000 ml Route: IV; Rate: 200 ml/hr; Site: right jb4 antecubital; 23:23 Follow up: IV Status: Infusion continued upon admission jb4 20:40 Drug: Potassium Chloride 20 mEq Route: IV; Rate: calculated rate; Site: right jb4 antecubital; 21:40 Follow up: IV Status: Completed infusion jb4 21:43 Drug: Motrin 600 mg Route: PO; jb4 22:30 Follow up: Response: No adverse reaction; Temperature is decreased jb4 22:35 Drug: Zithromax 500 mg Route: IVPB; Infused Over: 1 hrs; Site: right antecubital; jb4 23:23 Follow up: Response: No adverse reaction; IV Status: Infusion continued upon admission jb4 Disposition: 06/20 09:41 Co-signature as Attending Physician, Domenico Harding MD I agree with the assessment and kdr plan of care. Disposition: 06/19/20 21:54 Hospitalization ordered by Collin Smith for Observation. Preliminary diagnosis are Dehydration, Hypokalemia, Urinary tract infection, site not specified. - Bed requested for Telemetry/MedSurg (observation). - Status is Observation. jb4 - Condition is Stable. - Problem is new. - Symptoms are unchanged. Signatures: Dispatcher [employer] EDNE Racheal Devine RN RN mw Rittger, Kevin, MD MD kdr Waters, Shelly, INTERNET SYSTEMS ADMINISTRATOR-C INTERNET SYSTEMS ADMINISTRATOR-Csnw Maya Allen RN RN bb Williams, Irene, RN RN Marcial Valdivia RN RN [facility] Tristan Graves RN RN bp Corrections: (The following items were deleted from the chart) 06/19 18:33 18:14 [place] ordered. bp snw 22:57 21:54 Hospitalization Ordered by Collin Smith for Observation. Preliminary diagnosis mw is Dehydration; Hypokalemia; Urinary tract infection, site not specified. Bed requested for Telemetry/MedSurg (observation). Status is Observation. Condition is Stable. Problem is new. Symptoms are unchanged. snw 23:15 22:57 06/19/2020 21:54 Hospitalization Ordered by Collin Smith for Observation. morgan Preliminary diagnosis is Dehydration; Hypokalemia; Urinary tract infection, site not specified. Bed requested for Telemetry/MedSurg (observation). Status is Observation. Condition is Stable. Problem is new. Symptoms are unchanged. mw 23:28 23:15 06/19/2020 21:54 Hospitalization Ordered by Collin Smith for Observation. bb Preliminary diagnosis is Dehydration; Hypokalemia; Urinary tract infection, site not specified. Bed requested for Telemetry/MedSurg (observation). Status is Observation. Condition is Stable. Problem is new. Symptoms are unchanged. bb 23:52 23:28 06/19/2020 21:54 Hospitalization Ordered by Collin Smith for Observation. jb4 Preliminary diagnosis is Dehydration; Hypokalemia; Urinary tract infection, site not specified. Bed requested for Telemetry/MedSurg (observation). Status is Observation. Condition is Stable. Problem is new. Symptoms are unchanged. bb
--- NOTE | 2020-06-19 21:55 | ER ---
Nurse's Notes [facility] Name: Nubia Cardenas Age: 29 yrs Sex: Female : 1990 Arrival Date: 06/19/2020 Time: 17:43 Bed 19 Private MD: Diagnosis: Dehydration;Hypokalemia;Urinary tract infection, site not specified Presentation: 06/19 18:08 Chief complaint: Patient states: FEVER, HOOD, AND MALAISE SINCE Y/D. Coronavirus screen: bp chills, fatigue, fever, headache, muscle pain, Client presents with at least one sign or symptom that may indicate coronavirus-19. Standard/surgical mask placed on the client. Ebola Screen: No symptoms or risks identified at this time. Initial Sepsis Screen: Does the patient meet any 2 criteria? HR > 90 bpm. No. Patient's initial sepsis screen is negative. Does the patient have a suspected source of infection? No. Patient's initial sepsis screen is negative. Risk Assessment: Do you want to hurt yourself or someone else? Patient reports no desire to harm self or others. Onset of symptoms was June 18, 2020. 18:08 Method Of Arrival: Ambulatory bp 18:08 Acuity: CESAR 3 bp Triage Assessment: 18:10 Headache History: The patient has had previous headaches and this one is similar to bp previous episodes. General: Appears in no apparent distress. uncomfortable, ill, Behavior is calm, cooperative, appropriate for age. Pain: Complains of pain in head Pain currently is 5 out of 10 on a pain scale. Pain began 1 day ago. Also complains of no other associated symptoms. EENT: No deficits noted. Neuro: Reports headache. Cardiovascular: Rhythm is sinus tachycardia. Respiratory: No deficits noted. GI: No signs and/or symptoms were reported involving the gastrointestinal system. : No signs and/or symptoms were reported regarding the genitourinary system. Derm: No deficits noted. Musculoskeletal: No deficits noted. Historical: - Allergies: 18:10 No Known Allergies; bp - Home Meds: 18:10 None [Active]; bp - PMHx: 18:10 None; bp - Immunization history:: Adult Immunizations up to date. - Social history:: Smoking status: Patient denies any tobacco usage or history of. Screenin:11 Abuse screen: Denies threats or abuse. Denies injuries from another. Nutritional bp screening: No deficits noted. Tuberculosis screening: No symptoms or risk factors identified. Fall Risk None identified. Assessment: 18:11 General: SEE TRIAGE NOTE. Pain: Complains of pain in head. bp 19:00 Reassessment: Patient appears in no apparent distress at this time. Patient and/or jb4 family updated on plan of care and expected duration. Pain level reassessed. Patient is alert, oriented x 3, equal unlabored respirations, skin warm/dry/pink. 20:00 Reassessment: Patient appears in no apparent distress at this time. Patient and/or jb4 family updated on plan of care and expected duration. Pain level reassessed. Patient is alert, oriented x 3, equal unlabored respirations, skin warm/dry/pink. 21:00 Reassessment: Patient appears in no apparent distress at this time. Patient and/or jb4 family updated on plan of care and expected duration. Pain level reassessed. Patient is alert, oriented x 3, equal unlabored respirations, skin warm/dry/pink. 21:43 Reassessment: Patient appears in no apparent distress at this time. Patient and/or jb4 family updated on plan of care and expected duration. Pain level reassessed. Patient is alert, oriented x 3, equal unlabored respirations, skin warm/dry/pink. Vital Signs: 18:08 BP 126 / 66; Pulse 148; Resp 20; Temp 99.3; Pulse Ox 99% ; Weight 77.11 kg; Height 5 bp ft. 3 in. (160.02 cm); 20:36 BP 119 / 75; Pulse 125; Resp 16; Pulse Ox 99% on R/A; jb4 21:30 BP 114 / 70; Pulse 115; Resp 16; Temp 100.2(O); Pulse Ox 99% on R/A; jb4 22:30 BP 113 / 72; Pulse 105; Resp 18; Temp 98.6(O); Pulse Ox 100% on R/A; jb4 23:15 BP 93 / 64; Pulse 89; Resp 16; Pulse Ox 100% on R/A; jb4 18:08 Body Mass Index 30.11 (77.11 kg, 160.02 cm) bp ED Course: 17:43 Patient arrived in ED. mr 18:04 Tristan Graves, RN is Primary Nurse. bp 18:09 Triage completed. bp 18:11 Arm band placed on. bp 18:11 Patient has correct armband on for positive identification. Bed in low position. Call bp light in reach. Side rails up X2. 18:13 [facility] snw 18:13 Domenico Harding MD is Attending Physician. snw 18:30 Inserted saline lock: 20 gauge in right antecubital area, using aseptic technique. bp Blood collected. 19:23 EKG done, by ED staff, reviewed by Zoila COLEY. Patient maintains SpO2 jp3 saturation greater than 95% on room air. 19:46 Primary Nurse role handed off by Tristan Graves RN jb4 19:46 Marcial Valdivia, RN is Primary Nurse. jb4 21:53 Collin Smith is Hospitalizing Provider. snw 23:13 No provider procedures requiring assistance completed. Patient admitted, IV remains in bb place. 23:30 Attending Physician role handed off by Domenico Harding MD bb 23:30 Primary Nurse role handed off by Marcial Valdivia, RN bb Administered Medications: 18:30 Drug: NS 0.9% 1000 ml Route: IV; Rate: 1 bolus; Site: right antecubital; bp 19:30 Follow up: Response: No adverse reaction; IV Status: Completed infusion; IV Intake: jb4 1000ml 19:33 Drug: [place] 5 mg-325 mg 2 tabs Route: PO; iw 20:00 Follow up: Response: No adverse reaction; Pain is decreased; RASS: Alert and Calm (0) jb4 19:35 Drug: Rocephin 1 grams Route: IV; Rate: calculated rate; Site: right antecubital; iw 19:37 Follow up: Response: No adverse reaction; IV Status: Completed infusion jb4 19:40 Drug: Decadron - Dexamethasone 10 mg Route: IVP; Site: right antecubital; iw 20:10 Follow up: Response: No adverse reaction jb4 19:43 Drug: Lovenox 1 mg/kg Route: Sub-Q; Site: abdomen; iw 22:20 Follow up: Response: No adverse reaction jb4 20:39 Not Given (Other Intervention Used): NS 0.9% with KCl 40 mEq/L 1000 ml IV at 200 ml/hr jb4 continuous 20:40 Drug: NS 0.9% with KCl 20 mEq/L 1000 ml Route: IV; Rate: 200 ml/hr; Site: right jb4 antecubital; 23:23 Follow up: IV Status: Infusion continued upon admission jb4 20:40 Drug: Potassium Chloride 20 mEq Route: IV; Rate: calculated rate; Site: right jb4 antecubital; 21:40 Follow up: IV Status: Completed infusion jb4 21:43 Drug: Motrin 600 mg Route: PO; jb4 22:30 Follow up: Response: No adverse reaction; Temperature is decreased jb4 22:35 Drug: Zithromax 500 mg Route: IVPB; Infused Over: 1 hrs; Site: right antecubital; jb4 23:23 Follow up: Response: No adverse reaction; IV Status: Infusion continued upon admission jb4 Intake: 19:30 IV: 1000ml; Total: 1000ml. jb4 Outcome: 21:54 Decision to Hospitalize by Provider. snw 23:13 Admitted to Tele accompanied by tech, via wheelchair, room 215, with chart, Report bb called to Jenny ABDULLAHI 23:13 Condition: stable 23:13 Instructed on the need for admit. 23:28 Patient left the ED. bb 23:52 Patient left the ED. jb4 Signatures: Zoila Naylor, CLINICAL REIMBURSEMENT SPECIALIST-C CLINICAL REIMBURSEMENT SPECIALIST-Csndanish BeckettaBeba AllenMaya, RN RN Jennifer Hobbs, RN Marcial Vasques RN RN jb4 Tristan Graves RN RN bp Armaan Garcia jp3 Corrections: (The following items were deleted from the chart) 21:45 21:30 BP 114 / 70; Pulse 99bpm; Resp 16bpm; Pulse Ox 99% RA; Temp 100.2F Oral; jb4 jb4 23:15 23:13 Admitted to Tele accompanied by tech, via wheelchair, room 205, with chart, bb Report called to Jenny mora
[2020-06-19] MEDS ORDERED: ONDANSETRON 4 MG/2 ML VIAL IV PRN (22:36)
[2020-06-19] MEDS ORDERED: ACETAMINOPHEN 500 MG TAB PO PRN (22:36)
[2020-06-19] MEDS ORDERED: AZITHROMYCIN 500 MG INJ IVPB ONE (22:39)
[2020-06-19] MEDS ORDERED: NA CHLORIDE 0.9% 250 ML ONE (22:39)
--- NOTE | 2020-06-19 22:46 | P.HP ---
Certification for Inpatient Patient admitted to: Observation With expected LOS: <2 Midnights Patient will require the following post-hospital care: None Practitioner: I am a practitioner with admitting privileges, knowledge of patient current condition, hospital course, and medical plan of care. Services: Services provided to patient in accordance with Admission requirements found in Title 42 Section 412.3 of the Code of Federal Regulations <Jorge A Lindsey - Last Filed: 06/19/20 22:41> Patient History Date of Service: 06/19/20 Reason for admission: Urinary tract infection/nausea/vomiting/hypokalemia History of Present Illness: 29-year-old female with no significant past medical history presents to the emergency room complaining of feelings of fever, nausea and wanting to vomit. Patient states that she started feeling bad last night. She went to bed and when she woke up this morning she still did not feel well. States that she has progressively felt worse throughout the day. States that she is also had decrease in appetite, headache and felt like a sore throat earlier in the day. In the emergency room patient is alert and oriented x4, pleasant and cooperative. In no distress. Blood work shows a white cell count of 14.9, CRP of 219.0, pro Calot 12.11 and a lactate of 1. Patient is negative for the flu and negative for strep. Covered screening is pending. UA shows positive for leukocyte esterase +3, white cells too numerous to count and bacteria greater than 50. Her potassium level is 2.8 likely secondary to the vomiting. She is also noted to be dehydrated. Patient was started on IV fluids, IV antibiotics. Blood cultures and urine cultures are pending. Patient will be placed in observation and further evaluated. Home medications list reviewed: Yes - Past Medical/Surgical History Diabetic: No -: section x2 Psychosocial/ Personal History: Lives at home with her children. - Family History Mother -: Cancer Notes: Breast cancer - Social History Smoking Status: Never smoker Alcohol use: No CD- Drugs: No Caffeine use: No Place of Residence: Home <Jorge A Lindsey - Last Filed: 06/19/20 22:41> Date of Service: 06/20/20 <joe lopez - Last Filed: 06/20/20 14:06> Allergies No Known Allergies Allergy (Verified 07/15/13 02:10) Home Medications: NK [No Home Meds] 10/08/18 Review of Systems General: As per HPI Eyes: Unremarkable ENT: Unremarkable Respiratory: Unremarkable Cardiovascular: As per HPI (Slightly tachycardic at 103) Gastrointestinal: Nausea, Vomiting Genitourinary: As per HPI Musculoskeletal: Unremarkable Integumentary: Unremarkable Neurological: Unremarkable Lymphatics: Unremarkable <Jorge A Lindsey - Last Filed: 06/19/20 22:41> Physical Examination - Vital Signs Temperature: 99.3 F Blood Pressure: 126/66 Pulse: 115 Respirations: 16 Pulse Ox (%): 99 (RA) - Physical Exam General: Alert, In no apparent distress, Oriented x3 HEENT: Atraumatic, Normocephalic, PERRLA, Mucous membr. moist/pink Neck: Supple, No Thyromegaly, Other (Trachea midline) Respiratory: Clear to auscultation bilaterally, Normal air movement Cardiovascular: No edema, Normal pulses, Regular rate/rhythm Capillary refill: <2 Seconds Gastrointestinal: Normal bowel sounds, Soft and benign, Non-distended Musculoskeletal: No clubbing, No swelling, No contractures, No erythema, No tenderness Integumentary: No rashes, No breakdown, No significant lesion, No tenderness/swelling, No erythema Neurological: Normal gait, Normal speech, Normal strength at 5/5 x4 extr, Normal tone, Cranial nerves 3-12 intact, Normal affect - Studies Laboratory Data (last 24 hrs) 06/19/20 18:40: PT 17.6 H, INR 1.50, APTT 38.6 H 06/19/20 18:40: WBC 14.9 H, Hgb 12.6, Hct 38.5, Plt Count 236 06/19/20 18:40: Sodium 137, Potassium 2.8 L*, BUN 6 L, Creatinine 1.02, Glucose 112 H, Total Bilirubin 0.7, AST 17, ALT 22, Alkaline Phosphatase 93, Lipase 62 L Microbiology Data (last 24 hrs): 06/19/20 18:40 Throat Group A Streptococcus Rapid Screen - Final 06/19/20 18:40 Nasopharnyx Influenza Type A Antigen Screen - Final 06/19/20 18:40 Nasopharnyx Influenza Type B Antigen Screen - Final <Jorge A Lindsey - Last Filed: 06/19/20 22:41> - Studies Laboratory Data (last 24 hrs) 06/19/20 18:40: PT 17.6 H, INR 1.50, APTT 38.6 H 06/19/20 18:40: WBC 14.9 H, Hgb 12.6, Hct 38.5, Plt Count 236 06/19/20 18:40: Sodium 137, Potassium 2.8 L*, BUN 6 L, Creatinine 1.02, Glucose 112 H, Total Bilirubin 0.7, AST 17, ALT 22, Alkaline Phosphatase 93, Lipase 62 L Microbiology Data (last 24 hrs): 06/19/20 18:40 Throat Group A Streptococcus Rapid Screen - Final 06/19/20 18:40 Nasopharnyx Influenza Type A Antigen Screen - Final 06/19/20 18:40 Nasopharnyx Influenza Type B Antigen Screen - Final <joe lopez - Last Filed: 06/20/20 14:06> Assessment and Plan - Plan Impression: Urinary tract infection complicated by nausea and vomiting resulting in dehydration: Hypokalemia: Elevated D-dimer: Plan: Urinary tract infection complicated by nausea and vomiting resulting in dehydration: Will start IV hydration, IV antibiotic Rocephin. Monitor vitals. Place on continuous telemetry. Will order lactic acid. CRP elevated at 219.0, procalcitonin elevated to 12.11. Hypokalemia: Potassium of 2.8 on arrival to ED. Will replace. Monitor daily labs. Elevated D-dimer: Etiology unclear. Covid 19 screening pending. Discharge Plan: Home Plan to discharge in: 48 Hours - Advance Directives Does patient have a Living Will: No Does patient have a Durable POA for Healthcare: No - Code Status/Comfort Care Code Status Assessed: Yes Time Spent Managing Pts Care (In Minutes): 55 <Jorge A Lindsey - Last Filed: 06/19/20 22:41> Physician Review: Patient Assessed, Agree with Above Assessment and Plan Physician Review Additional Text: Acute cystitis. IV Rocephin. Follow urine culture and blood cultures. <joe lopez - Last Filed: 06/20/20 14:06>
[2020-06-20] MEDS: NA CHLORIDE 0.9% 1,000 ML IV SCH ×4 (00:11→20:53)
[2020-06-20 00:20] VITALS: BMI 28.3
[2020-06-20 01:03] VITALS: O2SAT 100
[2020-06-20 05:54] LABS: Absolute Lymphocytes (CBC) 1.4 K/uL (0.7-4.9); Basophils % 0.4 % (0-1.3); Hematocrit 31.7 % (36.0-45.0); Lymphocytes % 10.5 % (15.3-44.8); MPV 10.2 fL (7.6-11.3); RBC Red Blood Cell Count 3.94 M/uL (3.86-4.86)
[2020-06-20 06:11] LABS: BUN Blood Urea Nitrogen 8 mg/dL (7-18); Bicarbonate 24 mmol/L (21-32); Glucose Level 128 mg/dL (74-106); Magnesium 2.2 mg/dL (1.8-2.4); Sodium Level 143 mmol/L (136-145)
[2020-06-20] MEDS: ENOXAPARIN 40 MG/0.4 ML SQ SCH (08:06)
[2020-06-20] MEDS: CEFTRIAXONE/SWI 1gm 1 GM/10 ML SYR IV SCH (08:07)
[2020-06-20] MEDS ORDERED: CEFTRIAXONE 1 GM/NS 50 ML 1 GM/50 ML BAG IV SCH (09:00)
--- NOTE | 2020-06-20 09:43 | RAD REPORT ---
EXAM DESCRIPTION: CT - Abdomen Pelvis W/Wo Contrast - 06/20/2020 8:51 am CLINICAL HISTORY: abnl soft tissue finding R peritoneum/pancreas COMPARISON: Chest For Pe Angio dated 06/19/2020 TECHNIQUE: Biphasic, helical CT imaging of the abdomen and pelvis was performed following 100 ml non -ionic IV contrast. Precontrast and delayed imaging performed. No oral contrast. All CT scans are performed using dose optimization technique as appropriate and may include automated exposure control or mA/KV adjustment according to patient size. FINDINGS: No suspicious findings in the lung bases. The liver and spleen show no suspicious findings. No gallbladder or biliary tree abnormality identifi ed. Portal vein is normal. Homogeneous attenuation is seen in the pancreatic parenchyma on all image acquisitions. No solid or c ystic pancreatic mass identified. No peripancreatic mass or inflammatory stranding. There is no retro peritoneal mass or abnormal lymphadenopathy identified. These areas are much better visualized on the current examination. Precontrast images show contrast within the collecting system of each kidney. This is expected given the prior contrast study. There is patchy opacification or contrast present in the right kidney on th e precontrast imaging. Renal function is symmetric. Heterogeneous attenuation throughout the right re nal parenchyma is noted with a few very small punctate areas of diminished attenuation in the left ki dney. Pattern is typical for pyelonephritis and needs correlation with UA abnormalities. There is a t race amount of stranding or edema in the perinephric fat. Urinary bladder is mostly contracted which limits assessment. No adrenal abnormalities. Uterus and ovaries show no suspicious findings. No dilated bowel loops or bowel wall thickening. Retrocecal appendix is normal. No free air or pneuma tosis. No hernia, mass or bulky lymphadenopathy. No suspicious bony findings. IMPRESSION: Heterogeneous enhancement pattern of the right kidney is a typical appearance for pyelon ephritis. Correlation is needed with UA abnormality can clinical history. The pancreas and retroperitoneal areas are unremarkable. No abnormality seen. These areas are much b mara visualized on the current study. Prior CT study finding believed to be summation of normal stru ctures.
--- NOTE | 2020-06-20 10:00 | RAD REPORT ---
EXAM DESCRIPTION: CT - Chest For Pe Angio - 06/20/2020 3:13 am CLINICAL HISTORY: 29 years Female elevated d-dimer COMPARISON: None TECHNIQUE: Images were obtained in the axial, sagittal, and coronal planes. Intravenous contrast was administered. 2-D MIP imaging was performed. This exam was performed according to our departmental dose-optimization program which includes use of Automated Exposure Control, adjustment of the mA and/or kV according to patient size and/or use o f iterative reconstruction technique. FINDINGS: No filling defects in pulmonary arteries bilaterally. No aortic dissection or dilatation. No pericardial or pleural effusions bilaterally. No adenopathy. No pneumothorax. Elevation right hemidiaphragm. No lung parenchymal infiltrates or nodules seen. No acute osseous abnormality. Possible abnormal soft tissue findings in the region of the right retroperitoneum and head of pancrea s. IMPRESSION: No evidence for pulmonary embolus. No aortic dissection or dilatation. Possible abnormal soft tissue finding in region of right retroperitoneum and pancreas. Correlation wi th CT scanning of the abdomen and pelvis suggested for further characterization. Electronically signed by: Cira Wood MD 06/19/2020 11:58 PM CDT Due to temporary technical issues with the PACS/Fluency reporting system, reports are being signed by the in house radiologist without review as a courtesy to ensure prompt reporting. The interpreting r adiologist is fully responsible for the content of the report
--- NOTE | 2020-06-20 14:12 | P.PN ---
Subjective Date of Service: 06/20/20 Chief Complaint: Urinary tract infection/nausea/vomiting/hypokalemia Patient currently has no complain. She denies any flank pain. She states her nausea has resolved. She is eating well. Physical Examination - Vital Signs Temperature: 97 F Blood Pressure: 109/56 Pulse: 76 Respirations: 18 Pulse Ox (%): 100 - Physical Exam General: Alert, In no apparent distress, Oriented x3 HEENT: Mucous membr. moist/pink Neck: Supple Respiratory: Clear to auscultation bilaterally, Normal air movement Cardiovascular: No edema, Regular rate/rhythm, Normal S1 S2 Gastrointestinal: Normal bowel sounds, Soft and benign, Non-distended, No tenderness Musculoskeletal: No swelling Integumentary: No rashes Neurological: Other (Nonfocal.) - Studies Laboratory Data (last 24 hrs) 06/19/20 18:40: PT 17.6 H, INR 1.50, APTT 38.6 H 06/19/20 18:40: WBC 14.9 H, Hgb 12.6, Hct 38.5, Plt Count 236 06/19/20 18:40: Sodium 137, Potassium 2.8 L*, BUN 6 L, Creatinine 1.02, Glucose 112 H, Total Bilirubin 0.7, AST 17, ALT 22, Alkaline Phosphatase 93, Lipase 62 L Microbiology Data (last 24 hrs): 06/19/20 18:40 Throat Group A Streptococcus Rapid Screen - Final 06/19/20 18:40 Nasopharnyx Influenza Type A Antigen Screen - Final 06/19/20 18:40 Nasopharnyx Influenza Type B Antigen Screen - Final Assessment And Plan - Current Problems (Diagnosis) (1) Acute pyelonephritis Current Visit: Yes Status: Acute (2) Sepsis Current Visit: Yes Status: Acute - Plan CT abdomen and pelvis result reviewed and suggesting pyelonephritis. Nonspecific hypoattenuation in the pancreas. Urine culture is growing Gram negative rods Continue IV Rocephin. Follow urine culture and blood cultures. Monitor CBC
[2020-06-21 06:03] LABS: Absolute Lymphocytes (CBC) 2.7 K/uL (0.7-4.9); BUN Blood Urea Nitrogen 7 mg/dL (7-18); Basophils % 0.1 % (0-1.3); Bicarbonate 24 mmol/L (21-32); Glucose Level 101 mg/dL (74-106); Hematocrit 29.1 % (36.0-45.0); Lymphocytes % 14.8 % (15.3-44.8); MPV 10.9 fL (7.6-11.3); Potassium 3.9 mmol/L (3.5-5.1); Sodium Level 143 mmol/L (136-145)
[2020-06-21] MEDS: ENOXAPARIN 40 MG/0.4 ML SQ SCH (08:34)
[2020-06-21] MEDS: CEFTRIAXONE/SWI 1gm 1 GM/10 ML SYR IV SCH (08:34)
[2020-06-21 11:53] VITALS: BP 126/64; TEMP 97.7
[2020-06-21 12:43] LABS: Absolute Lymphocytes (CBC) 2.3 K/uL (0.7-4.9); Basophils % 0.2 % (0-1.3); Hematocrit 31.9 % (36.0-45.0); Lymphocytes % 15.3 % (15.3-44.8); MPV 11.1 fL (7.6-11.3); RBC Red Blood Cell Count 3.97 M/uL (3.86-4.86)
[2020-06-21] MEDS: NA CHLORIDE 0.9% 1,000 ML IV SCH (13:12)
[2020-06-21 13:54] LABS: Blood Morphology Comment NOT SEEN (NOT SEEN); Platelet Estimate ADEQ; White Blood Cell Scan OK (OK)
--- NOTE | 2020-06-21 18:31 | P.DS ---
Admission Date: 06/19/20 Discharge Date: 06/21/20 Disposition: ROUTINE DISCHARGE Discharge Condition: GOOD Reason for Admission: Urinary tract infection/nausea/vomiting/hypokalemia Procedures: CXR 06/19: No acute cardiopulmonary process. No significant change from comparison. CTA Chest 06/19: No evidence for pulmonary embolus. No aortic dissection or dilatation. Possible abnormal soft tissue finding in region of right retroperitoneum and pancreas. Correlation with CT scanning of the abdomen and pelvis suggested for further characterization CT Abd/Pelvis 06/20: Heterogeneous enhancement pattern of the right kidney is a typical appearance for pyelonephritis. Correlation is needed with UA abnormality can clinical history. The pancreas and retroperitoneal areas are unremarkable. No abnormality seen. These areas are much better visualized on the current study. Prior CT study finding believed to be summation of normal structures. Problem List Acute Pyelonephritis Hypokalemia Elevated D-dimer Brief History of Present Illness: 29-year-old female with no significant past medical history presents to the emergency room complaining of feelings of fever, nausea and wanting to vomit. Patient states that she started feeling bad last night. She went to bed and when she woke up this morning she still did not feel well. States that she has progressively felt worse throughout the day. States that she is also had decrease in appetite, headache and felt like a sore throat earlier in the day. In the emergency room patient is alert and oriented x4, pleasant and cooperative . In no distress. Blood work shows a white cell count of 14.9, CRP of 219.0, pro Calot 12.11 and a lactate of 1. Patient is negative for the flu and negative for strep. Covered screening is pending. UA shows positive for leukocyte esterase +3, white cells too numerous to count and bacteria greater than 50. Her potassium level is 2.8 likely secondary to the vomiting. She is also noted to be dehydrated. Patient was started on IV fluids, IV antibiotics. Hospital Course: Patient was treated with IV Rocephin for her pyelonephritis. Urine culture grew E.coli. 1/ blood cultures grew Bacillus species felt to be a contaminant. Sensitivities were reviewed and patient was discharged with Ciprofloxacin. On day of discharge, her WBC improved from 18.3k -> 15k, CRP: 219 -> 108, Procalcitonin 12.11 -> 7.45. Vital Signs/Physical Exam: Temp Pulse Resp BP Pulse Ox 97.7 F 88 16 126/64 100 06/21/20 11:52 06/21/20 11:52 06/21/20 11:52 06/21/20 11:52 06/21/20 11:52 General: Alert, In no apparent distress Neck: No LAD Respiratory: Clear to auscultation bilaterally Cardiovascular: Regular rate/rhythm, Normal S1 S2 Gastrointestinal: Soft and benign, Non-distended, No tenderness, Other (no CVA tenderness) Musculoskeletal: No erythema, No tenderness Integumentary: No rashes Neurological: Normal speech, Normal affect Laboratory Data at Discharge: WBC 15.0 K/uL (4.3-10.9) H D 06/21/20 12:01 Hgb 10.5 g/dL (12.0-15.0) L 06/21/20 12:01 Hct 31.9 % (36.0-45.0) L 06/21/20 12:01 Plt Count 177 K/uL (152-406) 06/21/20 12:01 PT 17.6 SECONDS (9.5-12.5) H 06/19/20 18:40 INR 1.50 06/19/20 18:40 APTT 38.6 SECONDS (24.3-36.9) H 06/19/20 18:40 Sodium 143 mmol/L (136-145) 06/21/20 03:56 Potassium 3.9 mmol/L (3.5-5.1) 06/21/20 03:56 BUN 7 mg/dL (7-18) 06/21/20 03:56 Creatinine 0.59 mg/dL (0.55-1.3) 06/21/20 03:56 Glucose 101 mg/dL (74-106) 06/21/20 03:56 Magnesium 2.2 mg/dL (1.8-2.4) 06/20/20 05:45 Total Bilirubin 0.7 mg/dL (0.2-1.0) 06/19/20 18:40 AST 17 U/L (15-37) 06/19/20 18:40 ALT 22 U/L (12-78) 06/19/20 18:40 Alkaline Phosphatase 93 U/L (45-117) 06/19/20 18:40 Lipase 62 U/L (73-393) L 06/19/20 18:40 Home Medications: Ciprofloxacin HCl [Cipro 500 MG Tablet] 1 tab PO BID 10 Days #20 tab 06/21/20 New Medications: Ciprofloxacin HCl [Cipro 500 MG Tablet] 1 tab PO BID 10 Days #20 tab Patient Discharge Instructions: Establish and follow up with a primary care provider (PCP) within 1 week. Diet: Regular Activity: Ad anirudh Followup: Dario Rapp MD [ACTIVE - CAN ADMIT] - Time spent managing pt's care (in minutes): 35
== END 2020-06-21 15:41 | disposition home or self-care (01) | DRG 872 ==
LOC: ER 17:40 → ERHOLD 22:33 → OBSVTOIN 22:33 → 2ND 23:13
PROVIDERS: ADMIT Internal Medicine; ATTEND Hospitalist
DX: A41.9 Sepsis, unspecified organism (principal); N10 Acute pyelonephritis; E87.6 Hypokalemia; R79.1 Abnormal coagulation profile; E86.0 Dehydration; B96.20 Unspecified Escherichia coli [E. coli] as the cause of diseases classified elsewhere; Z20.828 Contact with and (suspected) exposure to other viral communicable diseases
CPT/HCPCS: 36415; 71045; 71275; 74178; 80048; 80076; 81003; 81015; 81025; 82728; 83605; 83690; 83735; 84145; 84484; 85025; 85379; 85610; 85730; 86140; 87040; 87070; 87077; 87081; 87086; 87088; 87186; 87205; 87804; 93005; 96361; 96365; 96367; 96372; 96375; 99285; J0456; J0696; J1650; J3480; J7030; J7050; Q9967; U0003